=== PATIENT | female | born 1970 | race African-American/Black ===

== ENCOUNTER 2025-04-21 12:11 | Emergency (ER) | payer OTHER, SELFPAY ==
--- NOTE | ~2025-04-21 | XR_ITS ---
PA, oblique, and lateral views of the right fifth finger CLINICAL HISTORY: Crush injury FINDINGS: No fracture or dislocation seen. Joint spaces are intact. Soft tissues are unremarkable. IMPRESSION: Unremarkable exam. Reviewed, dictated and finalized at location M. IMPRESSION: Unremarkable exam.
[2025-04-21 12:12] VITALS: BP 126/89; PULSE 100; RESP 16; TEMP 36.4; O2SAT 98
--- OUTSIDE RECORDS SUMMARY | 2025-04-21 13:10 | XMS_ITS | Clinical Summary ---
Author Organization [facility] [place] Address [address] [place] [address] Care Team Providers Care Inventory Clerk Name Role Phone Jeramie Cortez MD Primary Care Provider [phone] Allergies Active Allergy Reactions Criticality Noted Date Comments Doxycycline Headache Medium 01/01/2025 Medications acetaminophen (TYLENOL) 500 mg tablet Take 1 tablet (500 mg total) by mouth every 6 (six) hours as needed 3 Active albuterol 2.5 mg /3 mL (0.083 %) nebulizer solution INHALE CONTENTS OF 1 VIAL (3ML) BY MOUTH 3 TIMES A DAY (USING NEBULIZER) Active albuterol HFA (PROVENTIL HFA,VENTOLIN HFA,PROAIR HFA) 90 mcg/actuation inhaler Inhale 2 puffs every 4 (four) hours as needed 4 Active amoxicillin-cla vulanate (AUGMENTIN) 875-125 mg per tablet Active azelastine (ASTELIN) 137 mcg (0.1 %) nasal spray [place] 2 sprays twice a day by intranasal route for 30 days. 4 Active buPROPion XL (WELLBUTRIN XL) 150 mg 24 hr tablet Take 1 tablet every day by oral route for 90 days. Active cetirizine (ZyrTEC) 10 mg tablet TAKE 1 TABLET BY MOUTH EVERY DAY (FOR ALLERGIES) 4 Active ciprofloxacin-d exAMETHasone (CIPRODEX) otic suspension Active ergocalciferol (VITAMIN D) 50,000 unit capsule 4 Active famotidine (PEPCID) 20 mg tablet TAKE 1 TABLET BY MOUTH 2 TIMES A DAY (FOR STOMACH) Active fluticasone propionate (FLONASE) 50 mcg/actuation nasal spray INHALE 2 SPRAYS IN EACH NOSTRIL ONCE EVERY DAY (FOR ALLERGIES) 4 Active guaiFENesin ER (MUCINEX) 600 mg 12 hr tablet Take 2 tablets (1,200 mg total) by mouth 2 (two) times a day 4 Active HYDROcodone-kirsten taminophen (NORCO) 5-325 mg per tablet Take 1 tablet by mouth every 12 (twelve) hours as needed Active HYDROcodone-kirsten taminophen (NORCO) 7.5-325 mg per tablet Take 1 tablet by mouth every 6 (six) hours as needed 4 Active ibuprofen (ADVIL,MOTRIN) 800 mg tablet 3 Active ipratropium-alb uteroL (DUO-NEB) 0.5-2.5 mg/3 mL nebulizer solution 4 Active lidocaine (LIDODERM) 5 % 4 Active meloxicam (MOBIC) 7.5 mg tablet Take 1 tablet (7.5 mg total) by mouth daily 4 06/09/20 25 Active camphor-methyl salicyl-menthoL 4-30-10 % cream not authorized Active camphor-methyl salicyl-menthoL (Muscle Rub Ultra-Strength) 4-30-10 % cream not authorized Active montelukast (SINGULAIR) 10 mg tablet TAKE 1 TABLET BY MOUTH EVERY DAY (FOR BREATHING) 4 Active nicotine polacrilex (NICORETTE) 2 mg gum CHEW 1 PIECE(S) OF GUM 4 TIMES A DAY DIRECTED Active predniSONE (DELTASONE) 20 mg tablet 4 Active sulfamethoxazol e-trimethoprim (BACTRIM DS) 800-160 mg per tablet Take 1 tablet every 12 hours by oral route for 10 days. Active umeclidinium (INCRUSE ELLIPTA) 62.5 mcg/actuation blister with device INHALE 1 PUFF BY MOUTH EVERY DAY (FOR BREATHING) --- FOR BEST RESULTS, USE 10 MINUTES AFTER ALBUTEROL INHALER Active diclofenac sodium (VOLTAREN) 1 % gelIndications: Right hand pain Apply 2 g topically 3 (three) times a day 50 g Active Active Problems Problem Noted Date Diagnosed Date Allergic rhinitis 12/25/2024 Chronic deafness 12/25/2024 Chronic depression 12/25/2024 Eczema 12/25/2024 Gastroesophageal reflux disease 12/25/2024 Myopia 12/25/2024 Osteoarthritis 12/25/2024 Polyuria 12/25/2024 Reactive airway disease 12/25/2024 Upper respiratory infection 12/25/2024 Urinary incontinence 12/25/2024 Carpal tunnel syndrome 06/26/2022 Chronic obstructive lung disease 12/13/2017 Encounters Date Type Department Care Team Description 02/13/2025 Documentation [facility] Physical Therapy [address] [place] [phone] Mary Ann Dong, PLATEMAKER No Show (Pt was a no show/no call this date. Called and spoke with pt and she reported, My truck is broke down and I do not have a ride. Please cancel my next appointment too, PT Re-eval. Educated pt she will need a doctor's note in order to return to therapy as she does not know when her truck will be fixed. Pt verbalized understanding. ) 02/11/2025 Orders Only [facility] [address] [place] [phone] Shona Hutton MD Right hand pain 01/30/2025 1:30 PM CDT Therapy [facility] Physical Therapy [address] [place] [phone] Mary Ann Dong, DONG Left ankle pain, unspecified chronicity (Primary Dx) 01/23/2025 2:15 PM CDT Therapy [facility] Physical Therapy [address] [place] [phone] Dimple Pope PTA Left ankle pain, unspecified chronicity (Primary Dx) from Last 3 Months Social History Tobacco Use Types Packs/Day Years Used Date Smoking Tobacco: Never Tobacco Cessation:Counseling Given: Not Answered Comments Unknown Sex and Gender Information Value Date Recorded Sex Assigned at Not on file Legal Sex Female 7:13 AM [employer] Gender Identity Not on file Sexual Orientation Not on file Obstetrics History Last Filed Vital Signs Vital Sign Reading Time Taken Comments Blood Pressure 122/84 04/16/2020 11:51 AM CDT Pulse 78 04/16/2020 11:51 AM CDT Temperature 36.2 C (97.2 F) 04/16/2020 11:51 AM CDT Respiratory Rate - - Oxygen Saturation 98% 04/16/2020 11:51 AM CDT Inhaled Oxygen Concentration - - Weight 59 kg (130 lb) 04/16/2020 11:51 AM CDT Height 157.5 cm (5' 2) 04/16/2020 11:51 AM CDT Body Mass Index 23.78 04/16/2020 11:51 AM CDT Plan of Treatment Health Maintenance Due Date Last Done Comments Cervical Cancer Screening 1968 Colon Cancer Screening-Colonoscopy 1968 Depression Screening 1968 Hepatitis C Screening 1968 DTaP/Tdap/Td Vaccine (1 - Tdap) 1979 Hepatitis B Screening 1986 Regular Well Visit/Exam 18-64 1986 Pneumococcal vaccine <65 (1 of 2 - PCV) 1987 Zoster Vaccine (1 of 2) 2018 Breast Cancer Screening-Mammogram 08/28/2023 022, 10/02/2017 Covid-19 Vaccine ( season) 2024 10/21/2021, 02/26/2021, 02/05/2021 Influenza Vaccine (Season Ended) 2025 Insurance [facility] Care Teams Inventory Clerk Relationship Specialty Start Date End Date Jeramie Cortez MD [address] [place] [id number] PCP - General 04/16/20
--- OUTSIDE RECORDS SUMMARY | 2025-04-21 13:10 | XMS_ITS | Data Portability ---
[facility] Address [address] [place] [address] Assessment No assessment recorded. Plan of Treatment Reminders Order Date Submit Date Provider Last Modified By Organization Details Last Modified Time Details Appointments ANY 15 2024 02:15P Leidy Cortez MD Not available Not available Not available Lab drug screen, urine 2023 024 [facility] In-Office Order, Internal Use Only DO Not Attach Compendium DO Not Attach Compendium, Do Not Delete/merge, [id number] 10/08/2024 16:19:08 drug screen, urine 2023 024 Y[facility] In-Office Order, Internal Use Only DO Not Attach Compendium DO Not Attach Compendium, Do Not Delete/merge, [id number] 07/11/2024 10:00:48 Referral None recorded. Procedures None recorded. Surgeries None recorded. Imaging None recorded. Medication Orders hydrocodo ne 7.5 mg-acetam inophen 325 mg tablet 2024 025 [employer], [address] [place] [address], [id number], 04/09/2025 16:37:16 azelastin e 137 mcg (0.1 %) nasal spray 2024 025 [employer], [address] [place] [address], [id number], 04/09/2025 16:37:11 fluticaso ne propionat e 50 mcg/actua tion nasal spray,gokul haleon 2024 025 [facility], [address] [place] [address], [id number], 04/09/2025 16:37:[address] 10 mg tablet 2024 025 [facility], [address] [place] [address], [id number], 04/09/2025 16:37:11 amoxicill in 875 mg tablet 2024 025 [facility], [address] [place] [address], [id number], 04/09/2025 16:37:12 Vitamin D2 1,250 mcg (50,000 unit) capsule 2024 025 [facility], [address] [place] [address], [id number], 04/09/2025 16:37:13 lidocaine 5 % topical patch 2024 025 [facility], [address] [place] [address], [id number], 04/09/2025 16:37:10 hydrocodo ne 7.5 mg-acetam inophen 325 mg tablet 2024 025 [facility], [address] [place] [address], [id number], 01/08/2025 16:25:33 lidocaine 4 % topical cream 2024 025 [facility], [address] [place] [address], [id number], 01/08/2025 16:25:31 azelastin e 137 mcg (0.1 %) nasal spray 2024 025 [facility], [address] [place] [address], [id number], 01/08/2025 16:25:32 fluticaso ne propionat e 50 mcg/actua tion nasal spray,gokul pension 2024 025 [facility], [address] [place] [address], [id number], 01/08/2025 16:25:[address] 10 mg tablet 2024 025 [facility], [address] [place] [address], [id number], 01/08/2025 16:25:31 amoxicill in 875 mg tablet 2024 025 [facility], [address] [place] [address], [id number], 01/08/2025 16:25:32 triamcino lone acetonide 0.5 % topical cream 2024 025 [facility], [address] [place] [address], [id number], 01/08/2025 16:25:32 Vitamin D2 1,250 mcg (50,000 unit) capsule 2024 025 [facility], [address] [place] [address], [id number], 01/08/2025 16:25:31 hydrocodo ne 7.5 mg-acetam inophen 325 mg tablet [address], [address] [place] [address], [id number], 10/08/2024 16:15:25 azelastin e 137 mcg (0.1 %) nasal spray [address], [address] [place] [address], [id number], 10/08/2024 16:14:52 fluticaso ne propionat e 50 mcg/actua tion nasal spray,gokul pension 2023 [facility], [address] [place] [address], [id number], 10/08/2024 16:14:[address] 10 mg tablet 2023 [facility], [address] [place] [address], [id number], 10/08/2024 16:14:52 amoxicill in 875 mg tablet 2023 [facility], [address] [place] [address], [id number], 10/08/2024 16:16:03 Vitamin D2 1,250 mcg (50,000 unit) capsule 2023 [facility], [address] [place] [address], [id number], 10/08/2024 16:17:25 hydrocodo ne 7.5 mg-acetam inophen 325 mg tablet 2023 [facility], [address] [place] [address], [id number], 07/10/2024 16:05:08 azelastin e 137 mcg (0.1 %) nasal spray 2023 [facility], [address] [place] [address], [id number], 07/10/2024 16:04:56 fluticaso ne propionat e 50 mcg/actua tion nasal spray,gokul pension 2023 024 [facility], [address] [place] [address], [id number], 07/10/2024 16:04:[address] 10 mg tablet 2023 024 [facility], [address] [place] [address], [id number], 07/10/2024 16:05:01 azelastin e 137 mcg (0.1 %) nasal spray [address] [facility], [address] [place] [address], [id number], 04/09/2024 16:38:39 fluticaso ne propionat e 50 mcg/actua tion nasal spray,gokul pension [address] [facility], [address] [place], [address], 04/09/2024 16:38:[address] 10 mg tablet [address] [facility], [address] [place] [address], [id number], 04/09/2024 16:38:39 Patient TargetsNo targets recorded. Patient Instructions Encounter Date Encounter Id Patient Instructions Last Modified By Organization Details Last Modified Time 04/09/2024 [id number] osteoarthritis: care instructions Not available 04/09/2024 16:38:40 allergies: care instructions Not available 04/09/2024 16:38:39 managing your allergies: care instructions Not available 04/09/2024 16:38:39 A healthy lifest yle: care instructions Not available 04/09/2024 16:38:40 gastroesophageal reflux disease (GERD): care instructions Not available 04/09/2024 16:38:40 chronic obstruct amrita pulmonary disease (COPD): care instructions Not available 04/09/2024 16:38:39 learning about c opd and how to prevent lung infections Not available 04/09/2024 16:38:39 leg and ankle ed panda: care instructions Not available 04/09/2024 16:38:39 07/10/2024 [id number] osteoarthritis: care instructions Not available 07/10/2024 16:04:52 allergies: care instructions Not available 07/10/2024 16:04:52 managing your allergies: care instructions Not available 07/10/2024 16:04:52 A healthy lifest yle: care instructions Not available 07/10/2024 16:04:52 gastroesophageal reflux disease (GERD): care instructions Not available 07/10/2024 16:04:52 chronic obstruct amrita pulmonary disease (COPD): care instructions Not available 07/10/2024 16:04:52 learning about c opd and how to prevent lung infections Not available 07/10/2024 16:04:52 leg and ankle ed panda: care instructions Not available 07/10/2024 16:04:52 10/08/2024 [id number] osteoarthritis: care instructions Not available 10/08/2024 16:14:50 allergies: care instructions Not available 10/08/2024 16:14:49 managing your allergies: care instructions Not available 10/08/2024 16:14:49 A healthy lifest yle: care instructions Not available 10/08/2024 16:14:49 gastroesophageal reflux disease (GERD): care instructions Not available 10/08/2024 16:14:49 chronic obstruct amrita pulmonary disease (COPD): care instructions Not available 10/08/2024 16:14:49 learning about c opd and how to prevent lung infections Not available 10/08/2024 16:14:49 leg and ankle ed panda: care instructions Not available 10/08/2024 16:14:49 neuropathic pain : care instructions Not available 10/08/2024 16:17:24 01/08/2025 [id number] osteoarthritis: care instructions Not available 01/08/2025 16:25:28 allergies: care instructions Not available 01/08/2025 16:25:29 managing your allergies: care instructions Not available 01/08/2025 16:25:29 A healthy lifest yle: care instructions Not available 01/08/2025 16:25:28 gastroesophageal reflux disease (GERD): care instructions Not available 01/08/2025 16:25:29 advance care planning: care instructions Not available 01/08/2025 16:25:28 preventing falls : care instructions Not available 01/08/2025 16:25:29 Quitting Tobacco : Care Instructions Not available 01/08/2025 16:25:29 Medicare Wellnes s Preventive Checklist Not available 01/08/2025 16:25:28 eating healthy foods: care instructions Not available 01/08/2025 16:25:28 AD8 Dementia Screening Interview Not available 01/08/2025 16:25:29 chronic obstruct amrita pulmonary disease (COPD): care instructions Not available 01/08/2025 16:25:28 learning about c opd and how to prevent lung infections Not available 01/08/2025 16:25:29 leg and ankle ed panda: care instructions Not available 01/08/2025 16:25:29 neuropathic pain : care instructions Not available 01/08/2025 16:25:28 04/09/2025 [id number] osteoarthritis: care instructions Not available 04/09/2025 16:37:09 allergies: care instructions Not available 04/09/2025 16:37:08 managing your allergies: care instructions Not available 04/09/2025 16:37:09 A healthy lifest yle: care instructions Not available 04/09/2025 16:37:09 gastroesophageal reflux disease (GERD): care instructions Not available 04/09/2025 16:37:08 chronic obstruct amrita pulmonary disease (COPD): care instructions Not available 04/09/2025 16:37:09 learning about c opd and how to prevent lung infections Not available 04/09/2025 16:37:09 leg and ankle ed panda: care instructions Not available 04/09/2025 16:37:08 neuropathic pain : care instructions Not available 04/09/2025 16:37:08 Reason for Referral None Reported. Results Created Date Observation Date Name Description Value Unit Range Abnormal Flag Note LastModifiedBy Organization Detail LastModifiedTime 07/11/2007/11/2024 drug scree n, urine Methamphetam ine Negati ve Not Available In-Office Order Internal Use Only DO Not Attach Compendium DO Not Attach Compendium, Do Not Delete/merge, [id number] 07/10/2024 15:48:23 07/11/20 24 07/11/2024 drug scree n, urine THC Negati ve Not Available In-Office Order Internal Use Only DO Not Attach Compendium DO Not Attach Compendium, Do Not Delete/merge, [id number] 07/10/2024 15:48:23 07/11/20 24 07/11/2024 drug scree n, urine Cocaine (Jessica) Negati ve Not Available In-Office Order Internal Use Only DO Not Attach Compendium DO Not Attach Compendium, Do Not Delete/merge, [id number] 07/10/2024 15:48:23 07/11/20 24 07/11/2024 drug scree n, urine Benzodiazepi ne (Bzo) Negati ve Not Available In-Office Order Internal Use Only DO Not Attach Compendium DO Not Attach Compendium, Do Not Delete/merge, [id number] 07/10/2024 15:48:23 07/11/20 24 07/11/2024 drug scree n, urine Methadone (Mtd) Negati ve Not Available In-Office Order Internal Use Only DO Not Attach Compendium DO Not Attach Compendium, Do Not Delete/merge, [id number] 07/10/2024 15:48:23 07/11/2007/11/2024 drug scree n, urine Buprenorphin e (Bup) Negati ve Not Available In-Office Order Internal Use Only DO Not Attach Compendium DO Not Attach Compendium, Do Not Delete/merge, [id number] 07/10/2024 15:48:23 07/11/20 24 07/11/2024 drug scree n, urine Oxycodone (Oxy) Negati ve Not Available In-Office Order Internal Use Only DO Not Attach Compendium DO Not Attach Compendium, Do Not Delete/merge, [id number] 07/10/2024 15:48:23 07/11/20 24 07/11/2024 drug scree n, urine Barbiturates (Bar) Negati ve Not Available In-Office Order Internal Use Only DO Not Attach Compendium DO Not Attach Compendium, Do Not Delete/merge, [id number] 07/10/2024 15:48:23 07/11/20 24 07/11/2024 drug scree n, urine MDMA (Ecstacy) Negati ve Not Available In-Office Order Internal Use Only DO Not Attach Compendium DO Not Attach Compendium, Do Not Delete/merge, [id number] 07/10/2024 15:48:23 07/11/20 24 07/11/2024 drug scree n, urine Amphetamines (Amp) Negati ve Not Available In-Office Order Internal Use Only DO Not Attach Compendium DO Not Attach Compendium, Do Not Delete/merge, [id number] 07/10/2024 15:48:23 07/11/20 24 07/11/2024 drug scree n, urine Opiates (opi) Negati ve Not Available In-Office Order Internal Use Only DO Not Attach Compendium DO Not Attach Compendium, Do Not Delete/merge, [id number] 07/10/2024 15:48:23 07/11/20 24 07/11/2024 drug scree n, urine Phencyclidin e (Pcp) Negati ve Not Available In-Office Order Internal Use Only DO Not Attach Compendium DO Not Attach Compendium, Do Not Delete/merge, 07/10/2024 15:48:23 07/11/20 24 07/11/2024 drug scree n, urine Tricyclic Antidepressa nts Negati ve Not Available In-Office Order Internal Use Only DO Not Attach Compendium DO Not Attach Compendium, Do Not Delete/merge, 07/10/2024 15:48:23 07/11/20 24 07/11/2024 drug scree n, urine Fentanyl Negati ve Not Available In-Office Order Internal Use Only DO Not Attach Compendium DO Not Attach Compendium, Do Not Delete/merge, [id number] 07/10/2024 15:48:23 09/08/20 24 09/08/2024 Proca lcito otilio [Mass /volu me] in Serum or Plasm a procalcitoni n [mass/volume ] in serum or plasma text: 0.00 - 0.49 NG/mL Proca lcito otilio <0.05 0.00 - 0.49 NG/ML 09/08 8:49 PM CDT [facility] Not Available Not Available 02/13/2025 09:57:05 09/08/2009/08/2024 Compr ehens amrita metab olic 1999 panel - Serum or Plasm a glucose [mass/volume ] in serum or plasma 105 text: 70 - 99 mg/dL high GLUCO SE 105 (H) 70 - 99 MG/DL 09/08 8:15 PM CDT [facility] Not Available Not Available 02/13/2025 09:57:05 09/08/2009/08/2024 Compr ehens amrita metab olic 1999 panel - Serum or Plasm a urea nitrogen [mass/volume ] in serum or plasma 13 text: 7 - 18 mg/dL BUN 13 7 - 18 MG/DL 09/08 8:15 PM CDT [facility] Not Available Not Available 02/13/2025 09:57:05 09/08/20 24 09/08/2024 Compr ehens amrita metab olic 2000 panel - Serum or Plasm a creatinine [mass/volume ] in serum or plasma 0.94 text: 0.55 - 1.02 mg/dL CREAT ININE S/P/B 0.94 0.55 - 1.02 MG/DL 09/08 8:15 PM CDT [facility] Not Available Not Available 02/13/2025 09:57:05 09/08/20 24 09/08/2024 Compr ehens amrita metab olic 2000 panel - Serum or Plasm a sodium [moles/volum e] in serum or plasma 142 text: 136 - 145 mmol/L SODIU M S/P/B 142 136 - 145 MMOL/ L 09/08 8:15 PM CDT [facility] Not Available Not Available 02/13/2025 09:57:05 09/08/20 24 09/08/2024 Compr ehens amrita metab olic 1999 panel - Serum or Plasm a potassium [moles/volum e] in serum or plasma 3.1 text: 3.5 - 5.1 mmol/L low POTAS SIUM S/P/B 3.1 (L) 3.5 - 5.1 MMOL/ L 09/08 8:15 PM CDT [facility] Not Available Not Available 02/13/2025 09:57:05 09/08/20 24 09/08/2024 Compr ehens amrita metab olic 1999 panel - Serum or Plasm a chloride [moles/volum e] in serum or plasma 112 text: 97 - 115 mmol/L CHLOR SEBLE S/P/B 112 97 - 115 MMOL/ L 09/08 8:15 PM CDT [facility] Not Available Not Available 02/13/2025 09:57:05 09/08/20 24 09/08/2024 Compr ehens amrita metab olic 1999 panel - Serum or Plasm a carbon dioxide, total [moles/volum e] in serum or plasma 25.6 text: 21 - 32 mmol/L CO2 25.6 21 - 32 MMOL/ L 09/08 8:15 PM CDT [facility] Not Available Not Available 02/13/2025 09:57:05 09/08/20 24 09/08/2024 Compr ehens amrita metab olic 2000 panel - Serum or Plasm a calcium [mass/volume ] in serum or plasma 8.7 text: 8.5 - 10.1 mg/dL CALCI UM S/P/B 8.7 8.5 - 10.1 MG/DL 09/08 8:15 PM CDT [facility] Not Available Not Available 02/13/2025 09:57:05 09/08/20 24 09/08/2024 Compr ehens amrita metab olic 2000 panel - Serum or Plasm a bilirubin.to jackson [mass/volume ] in serum or plasma 0.3 text: 0.2 - 1.2 mg/dL BILIR UBIN TOTAL S/P/B 0.3 0.2 - 1.2 MG/DL 09/08 8:15 PM CDT [facility] Not Available Not Available 02/13/2025 09:57:05 09/08/20 24 09/08/2024 Compr ehens amrita metab olic 1999 panel - Serum or Plasm a protein [mass/volume ] in serum or plasma 7.4 text: 6.4 - 8.2 g/dL TOTAL PROTE IN S/P/B 7.4 6.4 - 8.2 G/DL 09/08 8:15 PM CDT [facility] Not Available Not Available 02/13/2025 09:57:05 09/08/20 24 09/08/2024 Compr ehens amrita metab olic 2000 panel - Serum or Plasm a albumin [mass/volume ] in serum or plasma 3.4 text: 3.4 - 5.0 g/dL ALBUM IN S/P/B 3.4 3.4 - 5.0 G/DL 09/08 8:15 PM CDT [facility] Not Available Not Available 02/13/2025 09:57:05 09/08/20 24 09/08/2024 Compr ehens amrita metab olic 2000 panel - Serum or Plasm a aspartate aminotransfe rase [enzymatic activity/vol ume] in serum or plasma 15 U/L low: 15U/Lh igh: 37U/L AST 15 15 - 37 U/L 09/08 8:15 PM CDT [facility] Not Available Not Available 02/13/2025 09:57:05 09/08/20 24 09/08/2024 Compr ehens amrita metab olic 2000 panel - Serum or Plasm a alanine aminotransfe rase [enzymatic activity/vol ume] in serum or plasma 16 U/L low: 14U/Lh igh: 55U/L ALT 16 14 - 55 U/L 09/08 8:15 PM CDT [facility] Not Available Not Available 02/13/2025 09:57:05 09/08/20 24 09/08/2024 Compr ehens amrita metab olic 1999 panel - Serum or Plasm a alkaline phosphatase [enzymatic activity/vol ume] in serum or plasma 84 U/L low: 50U/Lh igh: 136U/L ALKAL INE PHOSP HATAS E S/P/B 84 50 - 136 U/L 09/08 8:15 PM CDT [facility] Not Available Not Available 02/13/2025 09:57:05 09/08/20 24 09/08/2024 Compr ehens amrita metab olic 1999 panel - Serum or Plasm a anion gap in serum or plasma by calculation 4.4 text: 2 - 10 mmol/L ANION GAP 4.4 2 - 10 MMOL/ L 09/08 8:15 PM CDT [facility] Not Available Not Available 02/13/2025 09:57:05 09/08/2009/08/2024 Compr ehens amrita metab olic 1999 panel - Serum or Plasm a urea nitrogen/cre atinine [mass ratio] in serum or plasma 13.8 low: 6high: 26 BUN CREAT ININE RATIO 13.8 6 - 26 09/08 8:15 PM T [facility] Not Available Not Available 02/13/2025 09:57:05 09/08/20 24 09/08/2024 Compr ehens amrita metab olic 2000 panel - Serum or Plasm a albumin/glob ulin [mass ratio] in serum or plasma 0.8 text: 1.0 - 2.0 ratio low A/G RATIO 0.8 (L) 1.0 - 2.0 RATIO 09/08 8:15 PM T [facility] Not Available Not Available 02/13/2025 09:57:05 09/08/20 24 09/08/2024 Compr ehens amrita metab olic 2000 panel - Serum or Plasm a glomerular filtration rate [volume rate/area] in serum, plasma or blood by creatinine-b ased formula (CKD-epi 2020)/1.73 sq M 71 text: >90 mL/min /1.73 M2 low GFR ESTIM ATE 71 (L) >90 ML/UT N/1.7 3 M2 09/08 8:15 PM CDT [facility] Not Available Not Available 02/13/2025 09:57:05 09/08/2009/08/2024 Compr ehens amrita metab olic 2000 panel - Serum or Plasm a interpretati on and review of laboratory results Abnorm al Not Available Not Available 09:57:05 09/08/2009/08/2024 Fibri n D-dim er FEU [Mass /volu me] in Plate let poor plasm a fibrin D-dimer feu [mass/volume ] in platelet poor plasma 333 NG{fe u}/mL low: 0NG{fe u}/mLh igh: 500NG{ feu}/m L D-DIM ER 333 0 - 500 ng{FE U}/mL 09/08 8:07 PM CDT [facility] Not Available Not Available 02/13/2025 09:57:05 09/08/20 24 09/08/2024 CBC W Auto Diffe renti al panel - Blood leukocytes [#/volume] in blood by automated count 6.5 text: 4.5 - 11.0 x10'3/ uL WBC 6.50 4.5 - 11.0 x10'3 /uL 09/08 7:54 PM CDT [facility] Not Available Not Available 02/13/2025 09:57:05 09/08/20 24 09/08/2024 CBC W Auto Diffe renti al panel - Blood erythrocytes [#/volume] in blood by automated count 4.78 text: 4.20 - 5.40 x10'6/ uL RBC 4.78 4.20 - 5.40 x10'6 /uL 09/08 7:54 PM CDT [facility] Not Available Not Available 02/13/2025 09:57:05 09/08/2009/08/2024 CBC W Auto Diffe renti al panel - Blood hemoglobin [mass/volume ] in blood 13 text: 12.0 - 16.0 g/dL HGB 13.0 12.0 - 16.0 G/DL 09/08 7:54 PM CDT [facility] Not Available Not Available 02/13/2025 09:57:05 09/08/2009/08/2024 CBC W Auto Diffe renti al panel - Blood hematocrit [volume fraction] of blood by calculation 39.9 % low: 38%hig h: 48% HCT 39.9 38.0 - 48.0 % 09/08 7:54 PM CDT [facility] Not Available Not Available 02/13/2025 09:57:05 09/08/2009/08/2024 CBC W Auto Diffe renti al panel - Blood MCV [entitic mean volume] in red blood cells 83.5 text: 81.0 - 99.0 fL MCV 83.5 81.0 - 99.0 FL 09/08 7:54 PM CDT [facility] Not Available Not Available 02/13/2025 09:57:05 09/08/2009/08/2024 CBC W Auto Diffe renti al panel - Blood MCH [entitic mass] 27.2 pg low: 27pghi gh: 31pg MCH 27.2 27.0 - 31.0 PG 09/08 7:54 PM CDT [facility] Not Available Not Available 02/13/2025 09:57:05 09/08/2009/08/2024 CBC W Auto Diffe renti al panel - Blood MCHC [entitic mass/volume] in red blood cells 32.6 text: 32.0 - 36.0 g/dL MCHC 32.6 32.0 - 36.0 G/DL 09/08 7:54 PM CDT [facility] Not Available Not Available 02/13/2025 09:57:05 09/08/20 24 09/08/2024 CBC W Auto Diffe renti al panel - Blood RDW 15 % low: 11.5%h igh: 14.5% high RDW 15.0 (H) 11.5 - 14.5 % 09/08 7:54 PM CDT [facility] Not Available Not Available 02/13/2025 09:57:05 09/08/20 24 09/08/2024 CBC W Auto Diffe renti al panel - Blood platelets [#/volume] in blood 266 text: 130 - 400 x10'3/ uL PLT 266 130 - 400 x10'3 /uL 09/08 7:54 PM CDT [facility] Not Available Not Available 02/13/2025 09:57:05 09/08/20 24 09/08/2024 CBC W Auto Diffe renti al panel - Blood platelet [entitic mean volume] in blood 8.4 text: 9.3 - 12.2 fL low MPV 8.4 (L) 9.3 - 12.2 FL 09/08 7:54 PM CDT [facility] Not Available Not Available 02/13/2025 09:57:05 09/08/20 24 09/08/2024 CBC W Auto Diffe renti al panel - Blood differential cell count method - blood AUTOMA RIYA DIFFER ENTIAL DIFFE RENTI AL TYPE AUTOM ATED DIFFE RENTI AL 09/08 7:54 PM CDT [facility] Not Available Not Available 02/13/2025 09:57:05 09/08/20 24 09/08/2024 CBC W Auto Diffe renti al panel - Blood neutrophils/ leukocytes in blood by automated count 34.1 % NEUTR OPHIL S % 34.1 % 09/08 7:54 PM CDT [facility] Not Available Not Available 02/13/2025 09:57:05 09/08/20 24 09/08/2024 CBC W Auto Diffe renti al panel - Blood lymphocytes/ leukocytes in blood by automated count 51.5 % LYMPH OCYTE S % 51.5 % 09/08 7:54 PM CDT [facility] Not Available Not Available 02/13/2025 09:57:05 09/08/20 24 09/08/2024 CBC W Auto Diffe renti al panel - Blood monocytes/le ukocytes in blood by automated count 11.8 % MONOC YTES % 11.8 % 09/08 7:54 PM CDT [facility] Not Available Not Available 02/13/2025 09:57:05 09/08/2009/08/2024 CBC W Auto Diffe renti al panel - Blood eosinophils/ leukocytes in blood by automated count 1.8 % EOSIN OPHIL S 1.8 % 09/08 7:54 PM CDT [facility] Not Available Not Available 02/13/2025 09:57:05 09/08/2009/08/2024 CBC W Auto Diffe renti al panel - Blood basophils/le ukocytes in blood by automated count 0.5 % BASOP HILS 0.5 % 09/08 7:54 PM CDT [facility] Not Available Not Available 02/13/2025 09:57:05 09/08/20 24 09/08/2024 CBC W Auto Diffe renti al panel - Blood immature granulocytes /leukocytes in blood by automated count 0.3 % IMMAT URE GRANS % 0.3 % 09/08 7:54 PM CDT [facility] Not Available Not Available 02/13/2025 09:57:05 09/08/2009/08/2024 CBC W Auto Diffe renti al panel - Blood neutrophils [#/volume] in blood 2.21 text: 1.80 - 7.70 x10'3/ uL ABS. NEUTR OPHIL S 2.21 1.80 - 7.70 x10'3 /uL 09/08 7:54 PM CDT [facility] Not Available Not Available 02/13/2025 09:57:05 09/08/20 24 09/08/2024 CBC W Auto Diffe renti al panel - Blood lymphocytes [#/volume] in blood 3.35 text: 1.00 - 4.80 x10'3/ uL ABS. LYMPH OCYTE S 3.35 1.00 - 4.80 x10'3 /uL 09/08 7:54 PM CDT [facility] Not Available Not Available 02/13/2025 09:57:05 09/08/20 24 09/08/2024 CBC W Auto Diffe renti al panel - Blood monocytes [#/volume] in blood 0.77 text: 0.24 - 0.86 x10'3/ uL ABS. MONOC YTES 0.77 0.24 - 0.86 x10'3 /uL 09/08 7:54 PM CDT [facility] Not Available Not Available 02/13/2025 09:57:05 09/08/20 24 09/08/2024 CBC W Auto Diffe renti al panel - Blood eosinophils [#/volume] in blood 0.12 text: 0.04 - 0.36 x10'3/ uL ABS. EOSIN OPHIL S 0.12 0.04 - 0.36 x10'3 /uL 09/08 7:54 PM CDT [facility] Not Available Not Available 02/13/2025 09:57:05 09/08/20 24 09/08/2024 CBC W Auto Diffe renti al panel - Blood basophils [#/volume] in blood 0.03 text: 0.01 - 0.08 x10'3/ uL ABS. BASOP HILS 0.03 0.01 - 0.08 x10'3 /uL 09/08 7:54 PM CDT [facility] Not Available Not Available 02/13/2025 09:57:05 09/08/20 24 09/08/2024 CBC W Auto Diffe renti al panel - Blood immature granulocytes [#/volume] in blood 0.02 text: 0.00 - 0.49 x10'3/ uL ABS. IMMAT URE GRANU LOCYT ES 0.02 0.00 - 0.49 x10'3 /uL 09/08 7:54 PM CDT [facility] Not Available Not Available 02/13/2025 09:57:05 09/08/20 24 09/08/2024 CBC W Auto Diffe renti al panel - Blood interpretati on and review of laboratory results Abnorm al Not Available Not Available 09:57:05 09/08/20 24 XR, chest [facility] [address] [facility] [address] [place] [address] [facility] [place] [address] [facility] [address], [place] [id number] Examin ation: Chest x-ray 1 view Access ion: [id number] Exam date/t citlalli: 2023 7:18 PM Reason For Exam: shortn ess of breath Compar anirudh: No prior exam Techni que: Uprigh t AP view of the chest demons trated . Findin gs: The cardia c silhou ette, medias tinal contou rs, and pulmon justin vessel s appear normal . The lungs are clear. No pneumo thorax . No consol idatio ns or effusi ons are seen. =====I MPRESS ION:== === No radiog raphic eviden ce of active chest diseas e. ====== ====== ====== === Ordere d By: GIANCARLO King Electr onical ly Signed By: Silver Cruz MD on 2023 7:36 PM Interp reted By: Silver Cruz MD, 2023 7:35 PM [facility] [address], [place], [address], 10/08/2024 16:06:29 09/08/20 ECG 12-le ad [facility] ONE [facility] [address] [facility] [place] [address] [facility] [place] Test Date: 2023-11 Pat Name: GREGORIA Romano Depart ment: 39 Patien t ID: [id number] Room: EXAM23 Gender : Female Techni viridiana: GR : [birth year] Reques riya By: GIANCARLO GOODRICH S Order Number : [id number] Flores bruner MD: David Wagner i Measur ements Interv als [place] Rate: 88 P: 64 VA: 176 QRS: 69 QRSD: 75 T: 44 QT: 356 QTc: 432 Interp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 [address] 3 08/15/2016 17:33:22 08/23/2016 11:24:30 Gastroesophageal reflux disease 794006031 K21.9 refill meds and follow up Chronic depression 8 F34.1 meds and follow up... stress level increased since leakage this morning... Osteoarthritis 597248504 M19.90 meds and follow up... [id number] Jeramie Cortez MD [place] [address] 3 09/18/2016 15:15:07 09/25/2016 15:49:21 Osteoarthritis 323596030 M19.90 meds and follow up... Gastroesop hageal reflux disease 137991163 K21.9 refill meds and follow up Allergic rhinitis 864879 04 J30.9 add nose spray and follow up sore throat Chronic depression 8 F34.1 meds and follow up... stress level increased since leakage in apt occuring on a regular basis... also patient is becoming nauseated and having headaches from the smell... she is researchin g options for [facility] e... [id number] Jeramie Cortez MD [place] [address] 3 12/19/2016 14:49:50 01/04/2017 10:13:35 Osteoarthritis 555397312 M19.90 meds and follow up... Chronic deafness 9566080 08 H91.90 lost hearing aid...refe r for replacemen t Chronic depression 8 F34.1 meds and follow up... stress level increased since leakage in apt occuring on a regular basis... also patient is becoming nauseated and having headaches from the smell... she is lovely bruner options for assistance ... Allergic rhinitis 963441 04 J30.9 add nose spray and follow up sore throat [id number] Dontae Parekh MD [facility] [address] [place] [address] 01/02/2017 10:42:12 01/02/2017 13:36:51 Pain in left knee 5795077754 59447 M25.562 Pain in left foot 797033 1379 66369 M79.672 Achilles tendinitis 1165 4001 M76.62 [id number] Jeramie Cortez MD [address] [address] 02/16/2017 14:43:34 02/26/2017 08:54:18 Osteoarthritis 396997357 M19.90 meds and follow up... Gastroesop hageal reflux disease 745973230 K21.9 refill meds and follow up Chronic deafness 4983760 08 H91.90 lost hearing aid...refe r for replacemen t Allergic rhinitis 597217 04 J30.9 add nose spray and follow up sore throat Chronic ob structive pulmonary disease 40330857 J44.9 stop smoking and follow up... Urinary incontinence 165 023311 R32 meds and follow up.. 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 [id number] Dontae Parekh MD [facility] [address] [place] [address] 05/22/2017 11:05:22 05/22/2017 16:58:55 Complex regional pain syndrome 542512293 G90.50 [id number] Jeramie Cortez MD [place] [address] 3 08/17/2017 15:28:11 08/31/2017 08:45:22 Osteoarthritis 272202751 M19.90 meds and follow up... Chronic ob structive pulmonary disease 04476106 J44.9 meds and follow up... Allergic rhinitis 570291 04 J30.9 add nose spray and follow up sore throat Gastroesop hageal reflux disease 158512942 K21.9 refill meds and follow up [id number] Marcia Trinidad MD [place] [address] 3 09/18/2017 15:05:55 09/18/2017 16:41:15 Gynecologic examination 58392920 Z01.419 Cigarette smoker 3909488 7 F17.033 [id number] Marcia Trinidad MD [address] [address] 10/02/2017 15:13:43 10/02/2017 16:07:28 Infection by Trichomonas 87965017 A59.9 [id number] Jeramie Cortez MD [address] [address] 11/19/2017 15:09:18 11/20/2017 14:13:45 Chronic obstructive pulmonary disease 21926216 J44.9 meds and follow up...add inhaler with SOB increase Allergic rhinitis 337219 04 J30.9 add nose spray and follow up sore throat Gastroesop hageal reflux disease 480921563 K21.9 refill meds and follow up Osteoarthritis 465173028 M19.90 meds and follow up... Depressive disorder 3548 9007 F32.9 flaring up with home situation. .. restart med [id number] Jeramie Cortez MD [address] [address] 01/18/2018 15:11:05 01/21/2018 09:21:54 Chronic obstructive pulmonary disease 85870114 J44.9 meds and follow up...add inhaler with SOB increase Allergic rhinitis 754575 04 J30.9 add nose spray and follow up sore throat Gastroesop hageal reflux disease 425911813 K21.9 refill meds and follow up Osteoarthritis 274979359 M19.90 meds and follow up... Sensorineu ral hearing loss 20661385 H90.5 hearing aid in left ear [id number] Jeramie Cortez MD [place] [address] 3 04/19/2018 13:44:10 05/14/2018 16:31:17 Chronic obstructive pulmonary disease 00186932 J44.9 meds and follow up...add inhaler with SOB increase Allergic rhinitis 846905 04 J30.9 add nose spray and follow up sore throat Gastroesop hageal reflux disease 509854042 K21.9 refill meds and follow up Osteoarthritis 737869211 M19.90 meds and follow up... has OA of left foot bones and old avulsion fx of heel.. [id number] Jeramie Cortez MD [place] [address] 3 07/19/2018 13:32:24 07/19/2018 17:22:35 Osteoarthritis 738349298 M19.90 meds and follow up... has OA of left foot bones and old avulsion fx of heel.. Chronic ob structive pulmonary disease 59683776 J44.9 meds and follow up...add inhaler with SOB increase Allergic rhinitis 202112 04 J30.9 add nose spray and follow up sore throat Gastroesop hageal reflux disease 679634650 K21.9 refill meds and follow up Adult heal th examination 790629448 Z00.00 colonoscop y refused... [id number] Odell Sykes MD [place] [address] 3 09/11/2018 18:02:35 09/12/2018 00:04:06 Upper respiratory infection 62870770 J06.9 Carpal diana fredo syndrome 27523629 G56.01 [id number] Jeramie Cortez MD [place] [address] 3 10/18/2018 13:47:13 10/18/2018 16:38:56 Osteoarthritis 020653854 M19.90 meds and follow up... has OA of left foot bones and old avulsion fx of heel.. Carpal diana fredo syndrome 19456154 G56.01 meds and follow up.. Serous niraj tis media of right ear 3374179311 489698 H65.91 meds and advised smoking cessation Chronic ob structive pulmonary disease 32587459 J44.9 meds and follow up...add inhaler with SOB increase [id number] Jeramie Cortez MD [place] [address] 3 01/16/2019 13:53:24 01/17/2019 08:36:10 Osteoarthritis 809244922 M19.90 meds and follow up... has OA of left foot bones and old avulsion fx of heel.. Carpal diana fredo syndrome 24672301 G56.01 meds and follow up.. Chronic ob structive pulmonary disease 89973086 J44.9 meds and follow up...add inhaler with SOB increase Hearing loss 28405311 H9 1.93 refer... mom has hearing aids also... [id number] Jeramie Cortez MD [place] [address] 3 04/18/2019 14:27:45 04/22/2019 13:53:01 Osteoarthritis 127613474 M19.90 meds and follow up... has OA of left foot bones and old avulsion fx of heel.. Carpal diana fredo syndrome 00240394 G56.01 meds and follow up.. Chronic ob structive pulmonary disease 54000116 J44.9 meds and follow up...add inhaler with SOB increase Hearing loss 49329053 H9 1.93 refer... mom has hearing aids also... Sleep apnea 28704640 G47 .30 refer [id number] Rich De Anda MD [facility] [address] [place] [address] 05/23/2019 16:21:10 05/30/2019 13:03:51 Obstructive sleep apnea syndrome 41461787 G47.33 sleep study discussed sleep hygiene Chronic ob structive pulmonary disease 79070785 J44.9 PFTs smoking cessation MDI ventolin /incruse Gastroesop hageal reflux disease 370831769 K21.9 zantac Tobacco user 930282215 Z 72.0 smoking essation [id number] Jeramie Cortez MD [address] 3 07/08/2019 18:28:08 07/09/2019 08:47:26 Osteoarthritis 652382739 M19.90 meds and follow up... has OA of left foot bones and old avulsion fx of heel.. Carpal diana fredo syndrome 09121552 G56.01 meds and follow up.. Chronic ob structive pulmonary disease 97526649 J44.9 meds and follow up...add inhaler with SOB increase Hearing loss 19833595 H9 1.93 refer... mom has hearing aids also... Sleep apnea 47485682 G47 .30 referred and evaluation pending.. Sprain of interphalangeal joint of finger 37891060 S63.639A removed sling and follow up... left index finger... [id number] Rich De Anda MD [facility] [address] [address] 08/08/2019 15:17:29 08/19/2019 14:18:51 Obstructive sleep apnea syndrome 11602995 G47.33 Split night sleep study - due to EDS, fatigue, tiredness, witnessed apnea [id number] Jeramie Cortez MD [place] [address] 3 08/11/2019 14:19:38 08/11/2019 20:28:42 Osteoarthritis 333800599 M19.90 meds and follow up... has OA of left foot bones and old avulsion fx of heel.. Carpal diana fredo syndrome 94511519 G56.01 meds and follow up.. Chronic ob structive pulmonary disease 69936514 J44.9 meds and follow up...add inhaler Hearing loss 76086450 H9 1.93 refer... mom has hearing aids also... Sleep apnea 88314511 G47 .30 referred Chronic deafness 4678432 08 H91.90 lost hearing aid...refe r for replacemen t Blurring o f visual image 557578977 H53.8 refer [id number] Jeramie Cortez MD [address] [address] 11/18/2019 18:15:14 11/19/2019 09:12:26 Feeling stressed 457613019 Z73.3 meds and follow up... in process of moving... Osteoarthritis 632547141 M19.90 meds and follow up... has OA of left foot bones and old avulsion fx of heel.. [id number] Rich De Anda MD [facility] [address] [place] [address] 11/21/2019 13:15:00 11/21/2019 15:47:28 Allergic rhinitis 86016141 J30.9 continue current meds Chronic ob structive pulmonary disease 69309363 J44.9 smoking cessation MDI ventolin /incruse Tobacco user 939984207 Z 72.0 smoking cessation Chronic depression 09509 0009 F34.1 continue current meds [id number] Michel Li MD [facility] [address] [place] [address] 12/03/2019 11:35:03 12/04/2019 17:22:58 Regular astigmatism 30469835 H52.223 Tear film insufficiency 76364046 H04.123 Nuclear sc lerotic cataract 443961762 H25.13 [id number] Jeramie Cortez MD [address] [address] 12/10/2019 15:22:35 12/11/2019 09:04:10 Chronic obstructive pulmonary disease 58226930 J44.9 meds and follow up...add inhaler Osteoarthritis 647805104 M19.90 meds and follow up... has OA of left foot bones and old avulsion fx of heel.. uses cane... also has low back pain complaints .. Carpal diana fredo syndrome 24575729 G56.01 meds and follow up.. Hearing loss 90618207 H9 1.93 refer... mom has hearing aids also... Sleep apnea 29124682 G47 .30 referred.. . said she didnt have it... Chronic deafness 2213546 08 H91.90 lost hearing aid...new hearing aids... Blurring o f visual image 383667180 H53.8 refer and glasses pending... Allergic rhinitis 033434 04 J30.9 add nose spray and follow up sore throat [id number] Odell Sykes MD [place] [address] 3 02/16/2020 18:30:44 02/17/2020 11:35:54 Otitis media 23587568 H66.93 [id number] Jeramie Cortez MD [place] [address] 3 03/10/2020 11:20:50 03/11/2020 09:56:56 Chronic obstructive pulmonary disease 19961218 J44.9 meds and follow up...add inhaler Osteoarthritis 541438328 M19.90 meds and follow up... has OA of left foot bones and old avulsion fx of heel.. uses cane... also has low back pain complaints .. Carpal diana fredo syndrome 00957326 G56.01 meds and follow up.. Hearing loss 75184487 H9 1.93 refer... mom has hearing aids also... Sleep apnea 34583732 G47 .30 referred.. . said she didnt have it... Chronic deafness 8201836 08 H91.90 lost hearing aid...new hearing aids... Blurring o f visual image 294570115 H53.8 refer and glasses pending... Allergic rhinitis 656180 04 J30.9 add nose spray and follow up sore throat Urinary incontinence 165 872909 R32 meds and follow up.. [id number] Jeramie Cortez MD [address] [address] 04/23/2020 11:53:01 04/26/2020 07:33:44 Chronic obstructive pulmonary disease 72687047 J44.9 meds and follow up...add inhaler Osteoarthritis 269728306 M19.90 meds and follow up... has OA of left foot bones and old avulsion fx of heel.. uses cane... also has low back pain complaints .. Carpal diana fredo syndrome 92907278 G56.01 meds and follow up.. Hearing loss 05025944 H9 1.93 refer... mom has hearing aids also... Sleep apnea 37976660 G47 .30 referred.. . Chronic deafness 8611159 08 H91.90 lost hearing aid...new hearing aids... Allergic rhinitis 322035 04 J30.9 add nose spray and follow up sore throat Urinary incontinence 165 410983 R32 meds and follow up.. [id number] Rich De Anda MD [facility] [address] [place] [address] 05/28/2020 12:00:23 05/31/2020 12:43:21 Chronic obstructive pulmonary disease 02524786 J44.9 MDI- Continue using incruse ellipta and ventolin as needed. Nebs PFTs Smokes tobacco daily 449 257740 Z72.0 smoking cessation Gastroesop hageal reflux disease 351178662 K21.9 Continue medication s as prescribed Viral screening 09139273 4 Z11.59 PFT orderd, COVID screening required [id number] Jeramie Cortez MD [address] [address] 07/20/2020 13:00:37 07/21/2020 07:00:11 Chronic obstructive pulmonary disease 73126856 J44.9 meds and follow up...add inhaler Osteoarthritis 224914200 M19.90 meds and follow up... has OA of left foot bones and old avulsion fx of heel.. uses cane... also has low back pain complaints .. Carpal diana fredo syndrome 24092613 G56.01 meds and follow up.. Hearing loss 09923193 H9 1.93 refer... mom has hearing aids also... Sleep apnea 51585302 G47 .30 referred.. . Chronic deafness 3694251 08 H91.90 lost hearing aid...new hearing aids... Allergic rhinitis 573475 04 J30.9 add nose spray and follow up sore throat Urinary incontinence 165 439640 R32 meds and follow up.. Otalgia of left ear 1089 085278 715705 H92.02 meds and follow up... [id number] Jeramie Cortez MD [address] [address] 08/09/2020 11:38:25 08/10/2020 11:03:04 Otalgia of left ear 5674604219 740010 H92.02 meds and follow up... [id number] Rich De Anda MD [facility] [address] [place] [address] 12/03/2020 12:31:40 12/03/2020 13:19:38 Chronic obstructive pulmonary disease 78941894 J44.9 MDI- Continue using incruse ellipta and ventolin as needed. [facility] Smokes tobacco daily 449 930120 Z72.0 smoking cessation Gastroesop hageal reflux disease 988521292 K21.9 Continue medication s as prescribed [id number] Jreamie Cortez MD [address] [address] 11/24/2020 11:50:30 11/25/2020 05:49:22 Chronic obstructive pulmonary disease 36139080 J44.9 meds and follow up...add inhaler Osteoarthritis 451248570 M19.90 meds and follow up... has OA of left foot bones and old avulsion fx of heel.. uses cane... also has low back pain complaints .. Carpal diana fredo syndrome 60226766 G56.01 meds and follow up.. Hearing loss 45210005 H9 1.93 refer... mom has hearing aids also... Sleep apnea 30004688 G47 .30 referred.. . Chronic deafness 0619509 08 H91.90 lost hearing aid...new hearing aids... Allergic rhinitis 729377 04 J30.9 add nose spray and follow up sore throat Urinary incontinence 165 483909 R32 meds and follow up.. Gastroesop hageal reflux disease 510117968 K21.9 refill meds and follow up [id number] Jeramie Cortez MD [address] [address] 01/24/2021 10:27:46 01/25/2021 06:38:58 Chronic obstructive pulmonary disease 02289741 J44.9 meds and follow up...add inhaler Osteoarthritis 259049316 M19.90 meds and follow up... has OA of left foot bones and old avulsion fx of heel.. uses cane... also has low back pain complaints .. Carpal diana fredo syndrome 84779765 G56.01 meds and follow up.. Hearing loss 74181635 H9 1.93 refer... mom has hearing aids also... Sleep apnea 18323471 G47 .30 referred.. . Chronic deafness 5085519 08 H91.90 lost hearing aid...new hearing aids... Allergic rhinitis 102658 04 J30.9 add nose spray and follow up sore throat Urinary incontinence 165 693238 R32 meds and follow up.. Gastroesop hageal reflux disease 821693219 K21.9 refill meds and follow up [id number] Jeramie Cortez MD [address] [address] 02/24/2021 13:35:46 02/25/2021 09:35:15 Chronic obstructive pulmonary disease 17501160 J44.9 meds and follow up...add inhaler Osteoarthritis 905060125 M19.90 meds and follow up... has OA of left foot bones and old avulsion fx of heel.. uses cane... also has low back pain complaints .. Carpal diana fredo syndrome 58600816 G56.01 meds and follow up.. Hearing loss 64643494 H9 1.93 refer... mom has hearing aids also... Sleep apnea 83139182 G47 .30 referred.. . Chronic deafness 5309342 08 H91.90 lost hearing aid...new hearing aids... Allergic rhinitis 186416 04 J30.9 add nose spray and follow up sore throat Urinary incontinence 165 241836 R32 meds and follow up.. Gastroesop hageal reflux disease 204828975 K21.9 refill meds and follow up [id number] Jeramie Cortez MD [address] [address] 03/24/2021 10:59:41 03/25/2021 06:34:35 Chronic obstructive pulmonary disease 70839230 J44.9 meds and follow up...add inhaler Osteoarthritis 242152917 M19.90 meds and follow up... has OA of left foot bones and old avulsion fx of heel.. uses cane... also has low back pain complaints .. Carpal diana fredo syndrome 95668063 G56.01 meds and follow up.. Hearing loss 32574108 H9 1.93 refer... mom has hearing aids also... Sleep apnea 10884963 G47 .30 referred.. . Chronic deafness 6059866 08 H91.90 lost hearing aid...new hearing aids... Allergic rhinitis 577984 04 J30.9 add nose spray and follow up sore throat Urinary incontinence 165 378189 R32 meds and follow up.. Gastroesop hageal reflux disease 929754631 K21.9 refill meds and follow up [id number] Jeramie Crotez MD [address] [address] 07/05/2021 10:35:26 07/06/2021 11:22:39 Osteoarthritis 829419630 M19.90 meds and follow up... has OA of left foot bones and old avulsion fx of heel.. uses cane... also has low back pain complaints .. Chronic ob structive pulmonary disease 73888922 J44.9 meds and follow up...add inhaler Carpal diana fredo syndrome 82794506 G56.01 meds and follow up.. Hearing loss 66129634 H9 1.93 refer... mom has hearing aids also... Sleep apnea 21845692 G47 .30 referred.. . Chronic deafness 4261607 08 H91.90 lost hearing aid...new hearing aids... Allergic rhinitis 829077 04 J30.9 add nose spray and follow up sore throat Urinary incontinence 165 313580 R32 meds and follow up.. Gastroesop hageal reflux disease 943348781 K21.9 refill meds and follow up [id number] Rich De Anda MD [facility] [address] [place] [address] 07/22/2021 14:16:10 07/28/2021 07:15:44 Chronic obstructive pulmonary disease 80527196 J44.9 MDI- Continue using incruse ellipta and ventolin as needed. NebsNew PFT and [address] Smokes tobacco daily 449 151731 Z72.0 smoking cessation Gastroesop hageal reflux disease 273213412 K21.9 Continue medication s as prescribed [id number] Jeramie Cortez MD [address] [address] 08/05/2021 10:28:15 08/09/2021 17:06:20 Osteoarthritis 476685390 M19.90 meds and follow up... has OA of left foot bones and old avulsion fx of heel.. uses cane... also has low back pain complaints .. Chronic ob structive pulmonary disease 04406424 J44.9 meds and follow up...add inhaler Carpal diana fredo syndrome 79992750 G56.01 meds and follow up.. Hearing loss 57191185 H9 1.93 refer... mom has hearing aids also... Sleep apnea 64396745 G47 .30 referred.. . Chronic deafness 9108173 08 H91.90 lost hearing aid...new hearing aids... Allergic rhinitis 736379 04 J30.9 add nose spray and follow up sore throat Urinary incontinence 165 545746 R32 meds and follow up.. Gastroesop hageal reflux disease 459133443 K21.9 refill meds and follow up Pain of le ft ankle joint 4603352262 9321104 M25.572 brace and home PT.. Pain in right knee 54899 63647 57596 M25.561 order and follow up... Pain of left wrist 73937 68706 15861 M25.474 [id number] Jeramie Cortez MD [address] [address] 10/28/2021 10:38:28 10/31/2021 10:19:55 Chronic obstructive pulmonary disease 50531191 J44.9 meds and follow up...add inhaler Screening for malignant neoplasm of colon 921117620 Z12.11 order Osteoarthritis 874253954 M19.90 meds and follow up... has OA of left foot bones and old avulsion fx of heel.. uses cane... also has low back pain complaints .. Carpal diana fredo syndrome 86558537 G56.01 meds and follow up.. Hearing loss 56914569 H9 1.93 refer... mom has hearing aids also... Sleep apnea 88008421 G47 .30 referred.. . Chronic deafness 4632740 08 H91.90 lost hearing aid...new hearing aids... Allergic rhinitis 007894 04 J30.9 add nose spray and follow up sore throat Urinary incontinence 165 348637 R32 meds and follow up.. Gastroesop hageal reflux disease 461776995 K21.9 refill meds and follow up Pain of le ft ankle joint 2386820296 5127248 M25.572 brace and home PT.. Pain in right knee 01069 85780 57793 M25.561 order and follow up... Pain of left wrist 36084 29906 89715 M25.532 brace pending Adult heal th examination 830457100 Z00.00 colonoscop y refused... Increased blood pressure 20484567 R03.0 order and follow up... [id number] Jeramie Cortez MD [address] [address] 01/17/2022 09:58:32 01/19/2022 07:41:47 Osteoarthritis 510055000 M19.90 meds and follow up... has OA of left foot bones and old avulsion fx of heel.. uses cane... also has low back pain complaints .. Chronic ob structive pulmonary disease 95752870 J44.9 meds and follow up...add inhaler Screening for malignant neoplasm of colon 545888738 Z12.11 order Carpal diana fredo syndrome 19986805 G56.01 meds and follow up.. Hearing loss 98240383 H9 1.93 refer... mom has hearing aids also... Sleep apnea 71897260 G47 .30 referred.. . Chronic deafness 7713645 08 H91.90 lost hearing aid...new hearing aids... Allergic rhinitis 035363 04 J30.9 add nose spray and follow up sore throat Urinary incontinence 165 517747 R32 meds and follow up.. stable Gastroesop hageal reflux disease 264066129 K21.9 refill meds and follow up Pain of le ft ankle joint 4034837226 1506973 M25.572 brace and home PT.. Pain in right knee 20108 91541 11379 M25.561 order and follow up... Pain of left wrist 55870 86511 20726 M25.532 brace pending Adult heal th examination 528779645 Z00.00 colonoscop y refused... Increased blood pressure 53078820 R03.0 order and follow up... [id number] Jeramie Cortez MD [address] [address] 03/20/2022 10:08:21 03/21/2022 13:36:35 Chronic obstructive pulmonary disease 31218489 J44.9 meds and follow up...add inhaler Osteoarthritis 417559595 M19.90 meds and follow up... has OA of left foot bones and old avulsion fx of heel.. uses cane and has eval for scooter chair 03-23-2022 ... also has low back pain complaints .. Screening for malignant neoplasm of colon 907093176 Z12.11 order Carpal diana fredo syndrome 01438848 G56.01 meds and follow up.. Hearing loss 92175771 H9 1.93 refer... mom has hearing aids also... Sleep apnea 91488450 G47 .30 referred.. . Chronic deafness 2930803 08 H91.90 lost hearing aid...new hearing aids... Allergic rhinitis 561364 04 J30.9 add nose spray and follow up sore throat Urinary incontinence 165 002196 R32 meds and follow up.. stable Gastroesop hageal reflux disease 447701429 K21.9 refill meds and follow up Pain of le ft ankle joint 3516450846 5055594 M25.572 brace and home PT.. Pain in right knee 15748 99851 57991 M25.561 order and follow up... Pain of left wrist 68761 05106 20704 M25.532 brace pending Adult heal th examination 576172280 Z00.00 colonoscop y refused... Increased blood pressure 76632307 R03.0 order and follow up... [id number] Jeramie Cortez MD [address] [address] 04/20/2022 12:24:26 04/21/2022 12:33:18 Chronic obstructive pulmonary disease 65139607 J44.9 meds and follow up...add inhaler Osteoarthritis 697224553 M19.90 meds and follow up... has OA of left foot bones and old avulsion fx of heel.. uses cane... also has low back pain complaints .. Allergic rhinitis 372557 04 J30.9 add nose spray and follow up sore throat Screening for malignant neoplasm of colon 929945284 Z12.11 order Carpal diana fredo syndrome 36191514 G56.01 meds and follow up.. Hearing loss 83166269 H9 1.93 refer... mom has hearing aids also... Sleep apnea 90432907 G47 .30 referred.. . Chronic deafness 4272914 08 H91.90 lost hearing aid...new hearing aids... Urinary incontinence 165 991727 R32 meds and follow up.. stable Gastroesop hageal reflux disease 959119364 K21.9 refill meds and follow up Pain of le ft ankle joint 3729078947 1759714 M25.572 brace and home PT.. Pain in right knee 76163 08115 06206 M25.561 order and follow up... Pain of left wrist 89222 02947 34079 M25.532 brace pending Adult heal th examination 113701351 Z00.00 colonoscop y refused... Increased blood pressure 92947307 R03.0 order and follow up... [id number] Jeramie Cortez MD [address] [address] 05/30/2022 17:16:02 05/31/2022 08:59:39 Chronic obstructive pulmonary disease 30892229 J44.9 meds and follow up...add inhaler Osteoarthritis 208871182 M19.90 meds and follow up... has OA of left foot bones and old avulsion fx of heel.. uses cane...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
--- OUTSIDE RECORDS SUMMARY | 2025-04-21 13:10 | XMS_ITS | Referral Summary ---
Author Organization [facility] Address [address] [place] [phone] Care Team Providers Care Supervisor Volunteer Services Name Role Phone Jeramie Cortez MD Primary Care Provider [phone] Encounters Date Type Department Care Team Description 02/13/2025 Documentation [facility] OP Physical Therapy [address] [place] [phone] Mary Ann Dong PTA No Show (Pt was a no show/no [...] Pt verbalized understanding. ) 02/11/2025 Orders Only [facility] Medicine [address] [place] [address] [place] [phone] Shona Hutton MD Right hand pain 01/30/2025 1:30 PM CDT Therapy [facility] OP Physical Therapy [address] [place] [address] [phone] Mary Ann Dong, DONG Left ankle pain, unspecified chronicity (Primary Dx) 01/23/2025 2:15 PM CDT Therapy [facility] OP Physical Therapy [address] [place] [address] [phone] Dimple Pope, HEALTH OUTREACH WORKER Left ankle pain, unspecified chronicity (Primary Dx) from Last 3 Months Allergies Active Allergy Reactions Criticality Noted Date [...] (ASTELIN) 137 mcg (0.1 %) nasal spray [place] 2 sprays twice a day by intranasal [...] 3 (three) times a day 50 g 5 Active Active Problems Problem Noted Date Diagnosed Date Allergic rhinitis 12/25/2024 Chronic deafness 12/25/2024 Chronic depression 12/25/2024 Eczema 12/25/2024 Gastroesophageal reflux disease 12/25/2024 Myopia 12/25/2024 Osteoarthritis 12/25/2024 Polyuria 12/25/2024 Reactive airway disease 12/25/2024 Upper respiratory infection 12/25/2024 Urinary incontinence 12/25/2024 Carpal tunnel syndrome 06/26/2022 Chronic obstructive lung disease 12/13/2017 Social History Tobacco Use Types Packs/Day Years Used Date Smoking Tobacco: Never Tobacco Cessation:Counseling Given: Not Answered Comments Unknown Sex and Gender Information Value Date Recorded Sex Assigned at Not on file 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
[2025-04-21] MEDS: ACETAMINOPHEN 500 MG TABLET 1000 MG PO (14:12)
[2025-04-21] MEDS: IBUPROFEN 600 MG TABLET PO (14:13)
--- NOTE | 2025-04-21 14:22 | ED_ITS ---
HPI - General Adult General Chief complaint: Unspecified Stated complaint: broke my finger Time Seen by Provider: 04/21/25 12:51 History of Present Illness HPI narrative: Gregoria Sykes is a 54-year-old female who presents today after smashing her finger twice in a table yesterday at around 9:00 p.m.. No open wound lacerations noted. She has not had anything for the pain but she rates her pain a 07/22. Related Data Allergies Allergy/AdvReac Type Severity Reaction Status Date / Time No Known Allergies Allergy Mild Verified 05/18/23 14:31 Review of Systems Review of Systems: All systems reviewed & are unremarkable except as noted in HPI and below Exam Narrative: GENERAL: Well-appearing, well-nourished, and in no acute distress. HEAD: Normocephalic, atraumatic. EYES: PERRLA and EOMI. ENT: Nares clear, no rhinorrhea or epistaxis. Mucous membranes moist. Oropharynx without tonsillar hypertrophy exudate or other lesions. NECK: Supple. No adenopathy or masses. No carotid bruits or JVD CHEST: Clear to auscultation. No respiratory distress. No wheezes rales or rhonchi HEART: Regular rate and rhythm. No murmur heard. Normal peripheral pulses. ABDOMEN: Soft, nontender, nondistended, normal active bowel sounds. EXTREMITIES: Normal range of motion. No edema. + swelling to the pad of fifth right phalanx, neurovascular intact SKIN: Warm, dry, no rash. NEURO: No focal deficits. Alert and oriented x3. PSYCH: Normal mood and affect. Course Vital Signs Vital signs: Vital Signs Temperature 36.4 C L 04/21/25 12:12 Pulse Rate 100 04/21/25 12:12 Respiratory Rate 16 04/21/25 12:12 Blood Pressure 126/89 04/21/25 12:12 Pulse Oximetry 98 04/21/25 12:12 Oxygen Delivery Room Air 04/21/25 12:12 Temperature 36.4 C L 04/21/25 12:12 Pulse Rate 100 04/21/25 12:12 Respiratory Rate 16 04/21/25 12:12 Blood Pressure 126/89 04/21/25 12:12 Pulse Oximetry 98 04/21/25 12:12 Oxygen Delivery Room Air 04/21/25 12:12 Medical Decision Making [facility] Narrative Medical decision making narrative: 54-year-old female who presents with complaints of smashing her right 5th phalanx and a table twice last night at 9:00 p.m.. There is mild swelling to the pad of her 5th distal phalanx. Neurovascular intact range of motion splinted related to pain. Concern for fracture versus contusion X-ray back is negative for any acute findings Plan to place a finger splint and discharged home with Tylenol Motrin for pain with plastics for follow-up Return precautions provided Medical Records Medical records reviewed: Yes I reviewed the external patient's medical records. Vital Signs Vital Signs: Vital Signs Temperature 36.4 C L 04/21/25 12:12 Pulse Rate 100 04/21/25 12:12 Respiratory Rate 16 04/21/25 12:12 Blood Pressure 126/89 04/21/25 12:12 Pulse Oximetry 98 04/21/25 12:12 Oxygen Delivery Room Air 04/21/25 12:12 Temperature 36.4 C L 04/21/25 12:12 Pulse Rate 100 04/21/25 12:12 Respiratory Rate 16 04/21/25 12:12 Blood Pressure 126/89 04/21/25 12:12 Pulse Oximetry 98 04/21/25 12:12 Oxygen Delivery Room Air 04/21/25 12:12 Vitals reviewed by me Imaging Data Radiologist's impression: Impressions Finger X-Ray 04/21/25 13:56 IMPRESSION: Unremarkable exam. Discharge Plan Discharge Clinical Impression: Contusion of finger Qualifiers: Encounter type: initial encounter Finger: little finger Damage to nail status: without damage Laterality: right Qualified Code(s): S60.051A - Contusion of right little finger without damage to nail, initial encounter Patient Disposition: Home Condition: Stable Instructions: Antibiotic Form Additional Instructions: Continue to wear the finger splint Continue to rest/ ice / elevate Take Tylenol / Motrin for pain Follow up with hand specialist as we discussed If you develop any worsening symptoms or concerns return to the ER Patient Language: Maltese Follow-up/Referrals: Callum Bragg MD [Physician] - 1 Week UNKNOWN,DOCTOR [Primary Care Provider] - Stand Alone Forms: Work/School Release IP Time of Disposition: 14:30
--- OUTSIDE RECORDS SUMMARY | 2025-04-21 14:29 | XMS_ITS | Clinical Summary ---
Author Organization [facility] [place] Address [address] [place] [address] Care Team Providers Care Casting Machine Control Board Operator Name Role Phone Jeramie Cortez MD Primary Care Provider [phone] Allergies Active Allergy Reactions Criticality Noted Date [...] (ASTELIN) 137 mcg (0.1 %) nasal spray [place] 2 sprays twice a day by intranasal [...] Type Department Care Team Description 02/13/2025 Documentation [facility] OP Physical Therapy [address] [place] [phone] Mary Ann Dong, LASTEX THREAD WINDER No Show (Pt was a no show/no [...] Pt verbalized understanding. ) 02/11/2025 Orders Only [facility] Orth[facility] and Sports Medicine [address] [place] [phone] Shona Hutton MD Right hand pain 01/30/2025 1:30 PM CDT Therapy [facility] OP Physical Therapy [address] [place] [phone] Mary Ann Dong, DONG Left ankle pain, unspecified chronicity (Primary Dx) 01/23/2025 2:15 PM CDT Therapy [facility] OP Physical Therapy [address] [place] [phone] Dimple Pope PTA Left ankle pain, unspecified chronicity (Primary Dx) from Last 3 Months Social History Tobacco Use Types Packs/Day Years Used Date Smoking Tobacco: Never Tobacco Cessation:Counseling Given: Not Answered Comments Unknown Sex and Gender Information Value Date Recorded Sex Assigned at Not on file 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
--- OUTSIDE RECORDS SUMMARY | 2025-04-21 14:29 | XMS_ITS | Clinical Summary ---
Author Organization [facility] [employer] Address [address] [place] [address] Care Team Providers Care Teacher Home Therapy Name Role Phone Unavailable Primary Care Provider Unavailabl e Source Comments [facility],non-owned Affiliates and Associated Physician Practices is amultiple site organization consisting of ambulatory clinics and hospital sitesin [place], [place], [place] and [place]. This disclosure is being madepursuant to the Care Everywhere program and may not contain all information available regarding this patient. Last updated 18.[facility] [employer] Allergies No known active allergies Medications * Be aware that medications may not be up to date on this document. Alwaysverify current medications with the patient. ibuprofen (MOTRIN) 600 MG tablet Take 1 tablet by mouth once daily 30 tablet 01/28/2020 Active Social History Tobacco Use Types Packs/Day Years Used Date Smoking Tobacco: Every Day Cigarettes Smokeless Tobacco: Never Alcohol Use Standard Drinks/Week Comments Yes 0 (1 standard drink = 0.6 oz pur e alcohol) socially Comments Unknown Sex and Gender Information Value Date Recorded Sex Assigned at Not on file Legal Sex Female 7:05 PM CDT Gender Identity Not on file Sexual Orientation Not on file Last Filed Vital Signs Vital Sign Reading Time Taken Comments Blood Pressure 154/84 01/28/2020 7:09 PM CDT Pulse 104 01/28/2020 7:09 PM CDT Temperature 37.1 C (98.8 F) 01/28/2020 7:09 PM CDT Respiratory Rate 16 01/28/2020 7:09 PM CDT Oxygen Saturation 100% 01/28/2020 7:09 PM CDT Inhaled Oxygen Concentration - - Weight 61.2 kg (135 lb) 01/28/2020 7:09 PM CDT Height 157.5 cm (5' 2) 01/28/2020 7:09 PM CDT Body Mass Index 24.69 01/28/2020 7:09 PM CDT Plan of Treatment Health Maintenance Due Date Last Done Comments COLOGUARD (AGES 45-75) - COL ON CA SCREENING 1968 COLON MONITORING 1968 COLONOSCOPY - COLON CA SCREENING 1968 CT COLONOGRAPHY - COLON CA SCREENING 1968 Colorectal Cancer Screening 1968 FIT - COLON CA SCREENING 1968 FLEX SIG - COLON CA SCREENING 1968 LIPID TESTING 1968 MAMMOGRAM 1968 HIV SCREENING 1983 HEPATITIS C SCREENING 06/02/1986 DTAP/TDAP/TD VACCINES (1 - Tdap) 1987 HEPATITIS B VACCINE (1 of 3 - 19+ 3-dose series) 1987 PNEUMOCOCCAL VACCINE 50+ (1 of 1 - PCV) 2018 ZOSTER VACCINE (1 of 2) 2018 COVID-19 VACCINE ( - 2023-2 5 season) 2024 DEPRESSION SCREENING 11/12/2024 INFLUENZA VACCINE (Season Ended) 2025 HIB VACCINE Aged Out No longer eligi ble based on patient's age to complete this topic HPV VACCINE Aged Out No longer eligi ble based on patient's age to complete this topic MENINGOCOCCAL (Group B) VACC INE SHARED DECISION-MAKING Aged Out No longer eligibl e based on patient's age to complete this topic MENINGOCOCCAL GROUPS A/C/Y/W VACCINE Aged Out No longer eligible b ased on patient's age to complete this topic [place] [address] [place] [address] [facility] [employer]Y LIABILITY Libertarian Liability [facility]
--- OUTSIDE RECORDS SUMMARY | 2025-04-21 14:29 | XMS_ITS | Referral Summary ---
Author Organization [facility] Address [address] [place] [phone] Care Team Providers Care Bowstring Maker Name Role Phone Jeramie Cortez MD Primary Care Provider [phone] Encounters Date Type Department Care Team Description 02/13/2025 Documentation [facility] OP Physical Therapy [address] [place] [phone] Mary Ann Dong PTA No Show (Pt [...] Pt verbalized understanding. ) 02/11/2025 Orders Only [facility] [address] [place] [address] [place] [phone] Shona Hutton MD Right hand pain 01/30/2025 1:30 PM CDT Therapy [facility] OP Physical Therapy [address] [place] [address] [phone] Mary Ann Dong, DONG Left ankle pain, unspecified chronicity (Primary Dx) 01/23/2025 2:15 PM CDT Therapy [facility] OP Physical Therapy [address] [place] [address] [phone] Dimple Pope, BUSINESS INTELLIGENCE ETL DEVELOPER Left ankle pain, unspecified chronicity (Primary Dx) [...] (ASTELIN) 137 mcg (0.1 %) nasal spray [place] 2 sprays twice a day by intranasal [...] on file 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
== END 2025-04-21 14:42 | disposition home or self-care (01) ==
PROVIDERS: Emergency Provider Nurse Practitioner Family
DX: S60.051A Contusion of right little finger without damage to nail, initial encounter (principal); W23.0XXA Caught, crushed, jammed, or pinched between moving objects, initial encounter
CPT/HCPCS: 29130; 73140; 99283; A9270